=== PATIENT | female | born 1960 | race Caucasian/White ===

== ENCOUNTER 2018-03-03 17:20 | Emergency (ER) | payer BC ==
[~2018-03-03 17:20] MED LIST: ALBU8HFA INH; ASPI-715 PO; AZI250 PO; CEFU250 PO; CIT20 PO; CITA-141 PO; CYC10 PO; CYCL-277 PO; ENOX100D7 SQ; ESTR1TAB2 PO; FERR27TA3 PO; FISH OIL1 CAP PO; FLU20 PO; HYDR-385 PO; HYDR1TAB PO; LISI-353 PO; MELO-205 PO; MELO-207 PO; METF-450 PO; METH4TAB63 PO; MULT1CAP41 PO; NAL50 PO; OXYB5TAB86 PO; OXYGEN INH; PAR20 PO; PER PO; PEROXITINE; PHEN120S16 PO; PNEU0.5D3 IM; TOBOD OU; TOLT2TAB5 PO; TOLT4CAP13 PO; TRAZ-133 PO; TRAZ100T31 PO; TRAZ150T61 PO; WAR5 PO; depression med
[2018-03-03] MEDS ORDERED: CHOL10005 PO (17:41)
[2018-03-03] MEDS ORDERED: MULT1CAP59 PO (17:41)
[2018-03-03] MEDS ORDERED: TURM538C PO (17:41)
--- NOTE | 2018-03-03 17:42 | ER Report ---
History and Physical Time Seen By MD: 17:42 Hx. of Stated Complaint: Patient reports difficulty breathing due to swollen thyroid lump. Also states tongue is swollen. HPI/ROS CHIEF COMPLAINT: Throat pain HISTORY OF PRESENT ILLNESS: 58-year-old female patient presents to emergency room with complaint of throat pain. Patient states that she has a cyst on her thyroid that she needs to have removed. Patient states it swells and causes her entire throat to swell and causes pain. Patient states that the pain is unbearable. She denies having any fevers or chills. She states that she's not had any cough. She states that she does have a history of lung disease and she takes multiple medications for that and her other various chronic illnesses. Patient states pain seems to radiate up the right side of the neck to the right ear. She states she is not taking any medication for this. She states this been going on for approximately 3 days. REVIEW OF SYSTEMS: Respiratory: No cough, no dyspnea. Cardiovascular: No chest pain, no palpitations. Gastrointestinal: No vomiting, no abdominal pain. Musculoskeletal: No back pain. Allergies: Coded Allergies: Sulfa (Sulfonamide Antibiotics) (Verified Allergy, Severe, RASH, 03/03/18) metronidazole (Verified Allergy, Mild, made her feel ill, 03/03/18) Home Meds Active Scripts Lisinopril/Hydrochlorothiazide (LISINOPRIL-HCTZ 20-12.5 MG TAB) 1 Each Tablet, 1 EACH PO DAILY, #30 TAB 0 Refills Prov:MARY MEJIA MD 07/23/15 Hydrocodone Bit/Acetaminophen (HYDROCODON-ACETAMINOPHEN 5-325) 1 Each Tablet, 1 TAB PO TID PRN for pain, #90 TAB 0 Refills Prov:MARYLOU HORTA MD 08/13/14 Cyclobenzaprine Hcl (CYCLOBENZAPRINE HCL) 5 Mg Tablet, 1 TAB PO BID, #60 TAB 11 Refills Prov:MARYLOU HORTA MD 08/13/14 Meloxicam (MELOXICAM) 15 Mg Tablet, 1 TAB PO QDAY, #90 TAB 3 Refills Prov:MARYLOU HORTA MD 04/19/14 Oxybutynin Chloride (OXYBUTYNIN CHLORIDE) 5 Mg Tablet, 1 TAB PO BID, #180 TAB 3 Refills Prov:MARYLOU HORTA MD 2/19/15 Metformin Hcl (METFORMIN HCL) 500 Mg Tablet, 1 TAB PO BID, #60 TAB 12 Refills TAKE ONE TABLET BY MOUTH TWO TIMES A DAY WITH FOOD Prov:MARYLOU HORTA MD 04/19/14 Trazodone Hcl (TRAZODONE HCL) 100 Mg Tablet, 1 TAB PO HS, #90 TAB 3 Refills Prov:MARYLOU HORTA MD 12/22/13 Reported Medications Cholecalciferol (Vitamin D3) (VITAMIN D3) 1,000 Unit Tablet, 1000 UNIT PO DAILY, TAB 03/03/18 Multivitamin (MULTIVITAMINS) 1 Each Capsule, 1 EACH PO DAILY, CAPSULE 03/03/18 Turmeric Root Extract (Turmeric) 538 Mg Capsule, PO DAILY 03/03/18 Past Medical/Surgical History Patient has a past medical history of hypertension, lung disease, pulmonary embolism, scoliosis, arthritis, degenerative joint disease, thyroid nodule, depression. Patient has a surgical history of jaw surgery. Patient has a family medical history of psychiatric problems. Reviewed Nurses Notes: Yes Hx Smoking: Yes Smoking Status: Current: Every Day Smoker Hx Substance Use Disorder: No Hx Alcohol Use: No Constitutional Vital Sign - Last 24 Hours 03/03/18 17:32 Temp 98.4 Pulse 109 Resp 18 B/P (MAP) 155/89 Pulse Ox 88 O2 Delivery Nasal Cannula Physical Exam General Appearance: The patient is alert, has no immediate need for airway pro tection and no current signs of toxicity. ENT: Tympanic membranes are pearly-williamson, auditory canals are patent, mixed membranes are moist. Patient had no noticeable thyroid enlargement. Respiratory: Chest is non tender, lungs are clear to auscultation. Cardiac: regular rate and rhythm Gastrointestinal: Abdomen is soft and non tender, no masses, bowel sounds normal. Musculoskeletal: Neck: Neck is supple and non tender. Extremities have full range of motion and are non tender. Skin: No rashes or lesions. DIFFERENTIAL DIAGNOSIS: After history and physical exam differential diagnosis was considered for upper respiratory infection, pharyngitis, thyroid enlargement. Medical Decision Making Data Points Result Diagram: 03/03/18181203/03/181812 Laboratory Hematology Test 03/03/18 18:13 Red Blood Count 5.48 M/uL (4.17-5.56) Mean Corpuscular Volume 99.7 fL (80.0-96.0) Mean Corpuscular Hemoglobin 34.4 pg (26.0-33.0) Mean Corpuscular Hemoglobin Concent 34.5 g/dL (32.0-36.0) Red Cell Distribution Width 14.7 % (11.5-14.5) Mean Platelet Volume 7.9 fL (7.2-11.1) Neutrophils (%) (Auto) 56.4 % (39.4-72.5) Lymphocytes (%) (Auto) 35.2 % (17.6-49.6) Monocytes (%) (Auto) 7.9 % (4.1-12.4) Eosinophils (%) (Auto) 0.4 % (0.4-6.7) Basophils (%) (Auto) 0.1 % (0.3-1.4) Nucleated RBC Relative Count (auto) 0.6 /100WBC Neutrophils # (Auto) 2.9 K/uL (2.0-7.4) Lymphocytes # (Auto) 1.8 K/uL (1.3-3.6) Monocytes # (Auto) 0.4 K/uL (0.3-1.0) Eosinophils # (Auto) 0.0 K/uL (0.0-0.5) Basophils # (Auto) 0.0 K/uL (0.0-0.1) Nucleated RBC Absolute Count (auto) 0.03 K/uL Sodium Level 140 mmol/L (137-145) Potassium Level 3.4 mmol/L (3.5-5.0) Chloride Level 101 mmol/L (98-107) Carbon Dioxide Level 26 mmol/L (22-31) Blood Urea Nitrogen 8 mg/dl (7-18) Creatinine 0.60 mg/dl (0.52-1.04) Glomerular Filtration Rate Calc > 60.0 Random Glucose 68 mg/dl (75-110) Calcium Level 9.1 mg/dl (8.4-10.2) Total Bilirubin 0.6 mg/dl (0.2-1.3) Aspartate Amino Transf (AST/SGOT) 193 U/L (0-35) Alanine Aminotransferase (ALT/SGPT) 83 U/L (0-56) Alkaline Phosphatase 75 U/L (0-126) C-Reactive Protein < 0.5 mg/dl (<1.0) Total Protein 6.8 g/dl (6.3-8.2) Albumin 4.0 g/dl (3.5-5.0) Chemistry Test 03/03/18 18:13 White Blood Count 5.2 k/uL (4.5-11.0) Red Blood Count 5.48 M/uL (4.17-5.56) Hemoglobin 18.8 g/dL (12.0-16.0) Hematocrit 54.6 % (34.0-47.0) Mean Corpuscular Volume 99.7 fL (80.0-96.0) Mean Corpuscular Hemoglobin 34.4 pg (26.0-33.0) Mean Corpuscular Hemoglobin Concent 34.5 g/dL (32.0-36.0) Red Cell Distribution Width 14.7 % (11.5-14.5) Platelet Count 157 K/uL (150-450) Mean Platelet Volume 7.9 fL (7.2-11.1) Neutrophils (%) (Auto) 56.4 % (39.4-72.5) Lymphocytes (%) (Auto) 35.2 % (17.6-49.6) Monocytes (%) (Auto) 7.9 % (4.1-12.4) Eosinophils (%) (Auto) 0.4 % (0.4-6.7) Basophils (%) (Auto) 0.1 % (0.3-1.4) Nucleated RBC Relative Count (auto) 0.6 /100WBC Neutrophils # (Auto) 2.9 K/uL (2.0-7.4) Lymphocytes # (Auto) 1.8 K/uL (1.3-3.6) Monocytes # (Auto) 0.4 K/uL (0.3-1.0) Eosinophils # (Auto) 0.0 K/uL (0.0-0.5) Basophils # (Auto) 0.0 K/uL (0.0-0.1) Nucleated RBC Absolute Count (auto) 0.03 K/uL Glomerular Filtration Rate Calc > 60.0 Calcium Level 9.1 mg/dl (8.4-10.2) Total Bilirubin 0.6 mg/dl (0.2-1.3) Aspartate Amino Transf (AST/SGOT) 193 U/L (0-35) Alanine Aminotransferase (ALT/SGPT) 83 U/L (0-56) Alkaline Phosphatase 75 U/L (0-126) C-Reactive Protein < 0.5 mg/dl (<1.0) Total Protein 6.8 g/dl (6.3-8.2) Albumin 4.0 g/dl (3.5-5.0) EKG/Imaging Imaging EXAMINATION: CT neck with IV contrast HISTORY: Growth on thyroid. Jaw and throat pain for 3 days. Difficulty breathing. Neck pain and swelling. COMPARISON: CT of the neck from 08/02/2009. Thyroid ultrasound from 09/04/2011. TECHNIQUE: Spiral scan was obtained from the hard palate through the upper chest during injection of nonionic iodinated intravenous contrast. Sagittal and coronal reformatted images are also submitted. CONTRAST: 75 mL of IV Isovue-370 One of the following dose optimization techniques was utilized in the performance of this exam: Automated exposure control; adjustment of the mA and/or kV according to the patient's size; or use of an iterative reconstruction technique. Specific details can be referenced in the facility's radiology CT exam operational policy. FINDINGS: Masses/lesions: Heterogeneous nodule in the right lobe of the thyroid measuring 2.6 x 2.3 x 1.9 cm. Airway: Normal. Vessels: Mild calcified plaque at the aortic arch. Musculoskeletal / Body wall: Mild multilevel disc and facet degenerative changes in the cervical spine. Plate and screw fixation of the mandible Lymph node assessment: Negative. Visualized orbits / brain / paranasal sinuses: Varices of both superior ophthalmic veins. Upper chest: Negative. IMPRESSION: Nodule in the right lobe of the thyroid measuring 2.6 x 2.3 x 1.9 cm. This is larger compared with previous right thyroid lobe nodule on thyroid ultrasound on 09/04/2011 (previous measurement of 1.8 x 1.2 x 1.0 cm). No airway stenosis is seen. No lymphadenopathy. Report Dictated By: Gen Turcios MD at 03/03/2018 6:59 PM Report E-Signed By: Gen Turcios MD at 03/03/2018 7:22 PM ED Course/Re-evaluation ED Course Patient was admitted to an exam room, history and physical were obtained. Differential diagnoses were considered. On examination lungs are clear, heart is regular, abdomen is soft and nontender. Patient did have some tenderness to the right side of the neck. I was unable to palpate a thyroid nodule. A IV was started, CBC, CMP, CRP, CT scan of the soft tissue neck were done. Lab results were unremarkable, CT scan of the neck did show a right sided thyroid nodule which is increasing in size. In comparison to previous ultrasound the nodule has almost doubled. I discussed the findings with the patient. Patient had received 1 L of normal saline as well as 15 mg of Toradol. Patient had significant improvement in her discomfort. Patient states that she is ready to go home. We will go ahead and discharge her with a limited supply of Toradol. She is to follow-up with either Dr. Dunn or Dr. Soto to discuss options for this thyroid nodule. Decision to Disposition Date: Mar 03, 2018 Decision to Disposition Time: 19:32 Depart Departure Latest Vital Signs Vital Signs Date Time Temp Pulse Resp B/P (MAP) Pulse Ox O2 Delivery O2 Flow Rate FiO2 03/03/18 17:32 98.4 109 18 155/89 88 Nasal Cannula Impression: Primary Impression: Thyroid nodule Condition: Improved Disposition: HOME OR SELF-CARE Referrals: LUKASZ MORAES DO (PCP) TIFFANY DUNN JOHN A MD [facility] Ketorolac Tromethamine (KETOROLAC TROMETHAMINE) 10 Mg Tab 10 MG PO Q6H, #20 TAB Prov: JEFF DEE 03/03/18 Patient Instructions: Thyroid Nodules (ED) Additional Instructions: Follow up with Dr. Dunn or Dr. Soto, general surgeon, to have the thyroid nodule removed. Get plenty of rest. Limit activity by pain. Get plenty of rest. Follow up with primary care provider in the next week. JEFF DEE Mar 03, 2018 17:42
[2018-03-03] MEDS ORDERED: KETOROLAC 15 MG/ML VIAL IVP ONE (18:00)
[2018-03-03] MEDS ORDERED: NS(*) 0.9% 1000 ML BAG 1,000 ML IV ONE (18:00)
[2018-03-03] MEDS ORDERED: IOPAMIDOL 76% 75 ML INFUS BTL 75 ML ONE (18:14)
[2018-03-03 18:20] LABS: PLATELET COUNT, AUTOMATED 157 K/uL (150-450)
[2018-03-03 19:15] VITALS: BP 133/93
--- NOTE | 2018-03-03 19:27 | RADIOLOGY IMAGING REPORT ---
FACILITY: [facility] - [place] PATIENT NAME: Aylin Baldwin : 1960 MR: [id number] V: [id number] EXAM DATE: ORDERING PHYSICIAN: JEFF DEE TECHNOLOGIST: Location: [facility] [place] Patient: Aylin Baldwin : 1960 Visit/Account:[id number] Date of Sevice: 03/03/2018 EXAMINATION: CT neck with IV contrast HISTORY: Growth on thyroid. Jaw and throat pain for 3 days. Difficulty breathing. Neck pain and swell ing. COMPARISON: CT of the neck from 08/02/2009. Thyroid ultrasound from 09/04/2011. TECHNIQUE: Spiral scan was obtained from the hard palate through the upper chest during injection o f nonionic iodinated intravenous contrast. Sagittal and coronal reformatted images are also submitte d. CONTRAST: 75 mL of IV Isovue-370 One of the following dose optimization techniques was utilized in the performance of this exam: Autom ated exposure control; adjustment of the mA and/or kV according to the patient's size; or use of an i terative reconstruction technique. Specific details can be referenced in the facility's radiology C T exam operational policy. FINDINGS: Masses/lesions: Heterogeneous nodule in the right lobe of the thyroid measuring 2.6 x 2.3 x 1.9 cm. Airway: Normal. Vessels: Mild calcified plaque at the aortic arch. Musculoskeletal / Body wall: Mild multilevel disc and facet degenerative changes in the cervical spin e. Plate and screw fixation of the mandible Lymph node assessment: Negative. Visualized orbits / brain / paranasal sinuses: Varices of both superior ophthalmic veins. Upper chest: Negative. IMPRESSION: Nodule in the right lobe of the thyroid measuring 2.6 x 2.3 x 1.9 cm. This is larger compared with pr evious right thyroid lobe nodule on thyroid ultrasound on 09/04/2011 (previous measurement of 1.8 x 1.2 x 1.0 cm). No airway stenosis is seen. No lymphadenopathy. Report Dictated By: Gen Turcios MD at 03/03/2018 6:59 PM Report E-Signed By: Gen Turcios MD at 03/03/2018 7:22 PM WSN:[id number]
[2018-03-03] MEDS ORDERED: KET10 PO (19:38)
== END 2018-03-03 19:42 | disposition home or self-care (01) ==
LOC: ER 17:48
DX: E04.1 Nontoxic single thyroid nodule (principal); F17.210 Nicotine dependence, cigarettes, uncomplicated
CPT/HCPCS: 70491; 85025; 86140; 96361; 96374; 99284; J1885; J7030; Q9967; 82040; 82247; 82310; 82374; 82435; 82565; 82947; 84075; 84132; 84155; 84295; 84450; 84460; 84520

== ENCOUNTER 2018-04-04 10:27 | Outpatient (RCR) | payer BC ==
[~2018-04-04 10:27] MED LIST changes: +AMLO-125 PO; +CHOL10005 PO; +KET10 PO; +LISI30TA49 PO; +METO1TAB PO; +MULT1CAP59 PO; +OXYB-13 PO; +OXYGENHOME INH; +SOLI5TAB PO; +SPIR25TA80 PO; +TURM538C PO; +VENL75CA4 PO
[2018-04-04 10:59] LABS: INR 1.01
--- NOTE | 2018-04-05 15:50 | RADIOLOGY IMAGING REPORT ---
FACILITY: [facility] PATIENT NAME: Aylin Baldwin : 1960 MR: [id number] V: [id number] EXAM DATE: ORDERING PHYSICIAN: TIFFANY GODINEZ TECHNOLOGIST: Location: [facility] - [place] Patient: Aylin Baldwin : 1960 Visit/Account:[id number] Date of Sevice: 04/05/2018 Exam type: US BIOPSY LOC/INJ THYROID History: rt thyroid nodule Comparison: Thyroid ultrasound performed today and CT of the neck March 03, 2018. Findings: Informed consent was obtained. The right-sided the patient's neck was prepped and draped usual steri le fashion. Local anesthesia was accomplished with 1% lidocaine. Under sonographic guidance five 25 -gauge FNA biopsies were obtained through the large complex nodule in the right lobe the thyroid glan d. Samples were given to the supervisor microbiology technologists for processing. The procedure was accomplished without apparent complication. IMPRESSION: 1. Successful sonographically guided right-sided thyroid biopsy Report Dictated By: Yeimi Herndon MD at 04/05/2018 3:44 PM Report E-Signed By: Yeimi Herndon MD at 04/05/2018 3:45 PM WSN:[email or web address]
--- NOTE | 2018-04-05 15:51 | RADIOLOGY IMAGING REPORT ---
FACILITY: [facility] PATIENT NAME: Aylin Baldwin : 1960 MR: [id number] V: [id number] EXAM DATE: ORDERING PHYSICIAN: TIFFANY GODINEZ TECHNOLOGIST: Location: [facility] [place] Patient: Aylin Baldwin : 1960 Visit/Account:[id number] Date of Sevice: 04/05/2018 THYROID HISTORY: assess thyroid nodule COMPARISON: CT of the neck March 03, 2018 and prior thyroid ultrasound January 21, 2015 FINDINGS: SIZE: Right lobe: 5.5 x 2 x 2.7 cm Left lobe: 4.5 x 1.3 x 1.3 cm Isthmus: 3.5 mm PARENCHYMA: Homogeneous. NODULES: Right lobe: * There is a 3.5 x 2 x 2.6 cm complex partially cystic nodule that is increased in size when compare d to the prior study at which time this mass measured 1.2 x 1 x 1.8 cm. Left lobe: * None discrete. Isthmus: * None discrete. VASCULARITY: Within normal limits. ADDITIONAL FINDINGS: None. IMPRESSION: There is a large complex partially cystic nodule in the right lobe measuring 3.5 x 2 x 2.6 cm which i s increased in size when compared to the prior thyroid ultrasound. This nodule was biopsied immediat donavan following the thyroid ultrasound REFERENCE: 2015 [place] [employer] Management Guidelines for Adult Patients with Thyroid Nodules and D ifferentiated Thyroid Cancer: The [place] [employer] Guidelines Task Force on Thyroid Nodul es and Differentiated Thyroid Cancer. SONOGRAPHIC PATTERNS: * Benign: Purely cystic nodules (no solid component); estimated risk of malignancy <1 percent; no bi opsy recommended. * Very Low Suspicion: Spongiform or partially cystic nodules without any of the sonographic features described in low, intermediate, or high suspicion patterns; estimated risk of malignancy <3 percent; consider FNA at > 2 cm (Observation without FNA is also a reasonable option). * Low Suspicion: Isoechoic or hyperechoic solid nodule, or partially cystic nodule with eccentric so lid areas, without microcalcification, irregular margin or ETE (extra-thyroidal extension), or taller than wide shape; estimated risk of malignancy 5-10 percent; recommend FNA at >1.5 cm. * Intermediate Suspicion: Hypoechoic solid nodule with smooth margins without microcalcifications, E TE (extra-thyroidal extension), or taller than wide shape; estimated risk of malignancy 10-20 percent ; recommend FNA at > 1 cm. * High Suspicion: Solid hypoechoic nodule or solid hypoechoic component of a partially cystic nodule with one or more of the following features: irregular margins (infiltrative, microlobulated), microc alcifications, taller than wide shape, rim calcifications with small extrusive soft tissue component, evidence of ETE (extra-thyroidal extension); estimated risk of malignancy >70-90 percent; recommend FNA at > 1 cm. NOTES: * Although a sonographically suspicious subcentimeter thyroid nodule without evidence of extrathyroi quoc extension or sonographically suspicious lymph nodes may be observed with close sonographic follow -up rather than pursuing immediate FNA, patient age and preference may modify decision-making. A > 50% interval increase in nodule volume and/or development of new suspicious sonographic features are felt to be a valid reasons for potential re-aspiration of a nodule previously shown to have benig n FNA cytology. Report Dictated By: Yeimi Herndon MD at 04/05/2018 3:45 PM Report E-Signed By: Yeimi Herndon MD at 04/05/2018 3:47 PM WSN:[email or web address]
== END 2018-04-05 18:00 | disposition home or self-care (01) ==
LOC: US 10:27 → EDSTATUS 04-05 10:27 → US 04-05 18:00
PROVIDERS: ATTEND Surgery
DX: E04.1 Nontoxic single thyroid nodule (principal)
CPT/HCPCS: 10005; 36415; 76536; 76942; 85610; 88104; 88172